=== PATIENT | female | born 1995 | race Native Hawaiian/Other Pacific Islander ===

== ENCOUNTER 2017-11-04 23:39 | Emergency (ER) | payer SELFPAY ==
[2017-11-05 01:32] LABS: Basophils % (Auto) 0.4 % (0.0-1.8); Eosinophils # (Auto) 0.3 K/mm3 (0.0-0.4); Eosinophils % (Auto) 3.2 % (0.0-4.3); Hematocrit 36.7 % (30.3-42.9); Hemoglobin 11.8 gm/dl (10.1-14.3); Lymphocytes # (Auto) 1.8 K/mm3 (1.2-5.4); Lymphocytes % (Auto) 19.7 % (13.4-35.0); Mean Corpuscular HGB Conc 32 % (30-34); Mean Corpuscular Hemoglobin 27 pg (28-32); Mean Corpuscular Volume 83 fl (79-97); Monocytes # (Auto) 0.6 K/mm3 (0.0-0.8); Monocytes % (Auto) 6.8 % (0.0-7.3); Platelet Count 248 K/mm3 (140-440); Red Blood Count 4.44 M/mm3 (3.65-5.03); Red Cell Distribution Width 15.2 % (13.2-15.2)
[2017-11-05 02:09] LABS: Bilirubin,Urine NEG (Negative); Blood,Urine LG (Negative); Mucus,Urine FEW /HPF; Urobilinogen,Urine < 2.0 mg/dL (<2.0)
[2017-11-05 02:13] LABS: Color,Urine Sl. Red (Yellow); RBC,Urine > 182.0 /HPF (0.0-6.0)
--- NOTE | 2017-11-05 10:05 | Emergency Department Report ---
ED Female HPI - General Chief complaint: Vaginal Bleeding Stated complaint: VAGINAL BLEEDING Time Seen by Provider: 11/05/17 09:46 Source: patient Mode of arrival: Ambulatory Limitations: No Limitations - History of Present Illness Initial comments: Patient is a 22-year-old female who is presenting with vaginal bleeding. Patient states she's been bleeding for the past 2 days. Patient states it is a heavy flow with several small clots. There also is some accompanying abdominal crampiness in the suprapubic region. Patient states his discomfort is a 45 out of 10 in severity. Patient had a chemical one month ago. Patient was approximately 5-6 weeks and took methotrexate to terminate the . Patient states she has not had sexual intercourse since that time and also has restarted control. The patient came today for evaluation of this vaginal bleeding. Severity scale (0 -10): 6 Quality: cramping Associated Symptoms: weakness. denies: vaginal discharge, nausea/vomiting, fever/chills, headaches, loss of appetite, dysuria, hematuria, rash, seizure, shortness of breath, syncope - Related Data Previous Rx's Medication Instructions Recorded Last Taken Type HYDROcodone/APAP 5-325 [[place] 1 each PO Q6HR PRN #12 tablet 11/05/17 Unknown Rx 5/325] Ibuprofen [Motrin] 600 mg PO Q8H PRN #20 tablet 11/05/17 Unknown Rx Methylergonovine [Methergine] 0.2 mg PO Q8HR 3 Days tablet 11/05/17 Unknown Rx Allergies Allergy/AdvReac Type Severity Reaction Status Date / Time latex Allergy Swelling Verified 11/05/17 00:26 ED Review of Systems ROS: Stated complaint: VAGINAL BLEEDING Other details as noted in HPI Comment: All other systems reviewed and negative ED Past Medical Hx - Past Medical History Hx Asthma: Yes Additional medical history: PCOS, THYROID DISEASE - Surgical History Additional Surgical History: Adenoidectomy, tonsillectomy, - Social History Smoking Status: Never Smoker Substance Use Type: None - Medications Home Medications: Home Medications Medication Instructions Recorded Confirmed Last Taken Type HYDROcodone/APAP 5-325 [[place] 1 each PO Q6HR PRN #12 tablet 11/05/17 Unknown Rx 5/325] Ibuprofen [Motrin] 600 mg PO Q8H PRN #20 tablet 11/05/17 Unknown Rx Methylergonovine [Methergine] 0.2 mg PO Q8HR 3 Days tablet 11/05/17 Unknown Rx ED Physical Exam - General Limitations: No Limitations General appearance: alert, in no apparent distress - Head Head exam: Present: atraumatic, normocephalic - Eye Eye exam: Present: normal appearance - ENT ENT exam: Present: mucous membranes moist - Neck Neck exam: Present: normal inspection - Respiratory Respiratory exam: Present: normal lung sounds bilaterally. Absent: respiratory distress, wheezes, rales, rhonchi - Cardiovascular Cardiovascular Exam: Present: regular rate, normal rhythm. Absent: systolic murmur, diastolic murmur, rubs, gallop - GI/Abdominal GI/Abdominal exam: Present: soft, tenderness (mild suprapubic), normal bowel sounds. Absent: distended, guarding, rebound, rigid - Extremities Exam Extremities exam: Present: normal inspection - Back Exam Back exam: Present: normal inspection - Neurological Exam Neurological exam: Present: alert, oriented X3 - Psychiatric Psychiatric exam: Present: normal affect, normal mood - Skin Skin exam: Present: warm, dry, intact, normal color. Absent: rash ED Course Vital Signs 11/05/17 11/05/17 00:20 08:17 Temperature 98.6 F 98.5 F Pulse Rate 63 74 Respiratory 16 18 Rate Blood Pressure 108/76 Blood Pressure 118/79 [Right] O2 Sat by Pulse 98 100 Oximetry ED Medical Decision Making - Lab Data Result diagrams: 11/05/17 00:40 Lab Results 11/05/17 11/05/17 11/05/17 Range/Units 00:40 00:40 00:40 WBC 9.3 (4.5-11.0) K/mm3 RBC 4.44 (3.65-5.03) M/mm3 Hgb 11.8 (10.1-14.3) gm/dl Hct 36.7 (30.3-42.9) % MCV 83 (79-97) fl MCH 27 L (28-32) pg MCHC 32 (30-34) % RDW 15.2 (13.2-15.2) % Plt Count 248 (140-440) K/mm3 Lymph % (Auto) 19.7 (13.4-35.0) % Centre % (Auto) 6.8 (0.0-7.3) % Eos % (Auto) 3.2 (0.0-4.3) % Baso % (Auto) 0.4 (0.0-1.8) % Lymph # 1.8 (1.2-5.4) K/mm3 Centre # 0.6 (0.0-0.8) K/mm3 Eos # 0.3 (0.0-0.4) K/mm3 Baso # 0.0 (0.0-0.1) K/mm3 Seg Neutrophils % 69.9 (40.0-70.0) % Seg Neutrophils # 6.5 (1.8-7.7) K/mm3 HCG, Qual Positive (Negative) HCG, Quant 46.95 H (0-4) mIU/mL Urine Color (Yellow) Urine Turbidity (Clear) Urine pH (5.0-7.0) Ur Specific [place] (1.003-1.030) Urine Protein (Negative) mg/dL Urine Glucose (UA) (Negative) mg/dL Urine Ketones (Negative) mg/dL Urine Blood (Negative) Urine Nitrite (Negative) Urine Bilirubin (Negative) Urine Urobilinogen (<2.0) mg/dL Ur Leukocyte Esterase (Negative) Urine WBC (Auto) (0.0-6.0) /HPF Urine RBC (Auto) (0.0-6.0) /HPF U Epithel Cells (Auto) (0-13.0) /HPF Urine Mucus /HPF Blood Type Antibody Screen 11/05/17 11/05/17 Range/Units 00:45 Unknown WBC (4.5-11.0) K/mm3 RBC (3.65-5.03) M/mm3 Hgb (10.1-14.3) gm/dl Hct (30.3-42.9) % MCV (79-97) fl MCH (28-32) pg MCHC (30-34) % RDW (13.2-15.2) % Plt Count (140-440) K/mm3 Lymph % (Auto) (13.4-35.0) % Centre % (Auto) (0.0-7.3) % Eos % (Auto) (0.0-4.3) % Baso % (Auto) (0.0-1.8) % Lymph # (1.2-5.4) K/mm3 Centre # (0.0-0.8) K/mm3 Eos # (0.0-0.4) K/mm3 Baso # (0.0-0.1) K/mm3 Seg Neutrophils % (40.0-70.0) % Seg Neutrophils # (1.8-7.7) K/mm3 HCG, Qual (Negative) HCG, Quant (0-4) mIU/mL Urine Color Sl. red (Yellow) Urine Turbidity Clear (Clear) Urine pH 6.0 (5.0-7.0) Ur Specific [place] 1.023 (1.003-1.030) Urine Protein 30 mg/dl (Negative) mg/dL Urine Glucose (UA) Neg (Negative) mg/dL Urine Ketones Neg (Negative) mg/dL Urine Blood Lg (Negative) Urine Nitrite Neg (Negative) Urine Bilirubin Neg (Negative) Urine Urobilinogen < 2.0 (<2.0) mg/dL Ur Leukocyte Esterase Neg (Negative) Urine WBC (Auto) 22.0 H (0.0-6.0) /HPF Urine RBC (Auto) > 182.0 (0.0-6.0) /HPF U Epithel Cells (Auto) 1.0 (0-13.0) /HPF Urine Mucus Few /HPF Blood Type A POSITIVE Antibody Screen Negative - Radiology Data Radiology results: report reviewed Patient: SUSAN REBOLLEDO MR#: [id number] : 1995 Acct:[id number] Age/Sex: 22 / F ADM Date: 11/04/17 Loc: ED Attending Dr: Ordering Physician: ERVIN LONGO MD Date of Service: 11/05/17 Procedure(s): US OB transvaginal Accession Number(s): [id number] cc: ERVIN LONGO MD ULTRASOUND OB LESS THAN 14 WEEKS FETUS ULTRASOUND OB TRANSVAGINAL HISTORY: Vaginal bleeding during . COMPARISON: None. TECHNIQUE: Transabdominal and transvaginal ultrasound with color doppler interrogation. FINDINGS: Uterus: 7 x 4 x 7 cm. No uterine mass. Normal cervix. Endometrium: There is a cystic structure in the endometrial canal measuring up to 7.3 mm which may represent a gestational sac. No pole, yolk sac or heart tones are identified. This may also represent fluid in the endometrial canal. The endometrium is thickened measuring 2.5 cm. Right ovary: 5.7 x 4.6 x 5.1 cm. There is a complex partially cystic lesion in the right ovary measuring up to 5 cm which resembles a hemorrhagic cyst. Left ovary: 2.5 x 0.9 x 1.9 cm. A 1.4 cm left ovarian cyst is identified. No pelvic fluid or mass is identified. Normal color doppler interrogation. IMPRESSION: No viable intrauterine is confidently identified. There may be a gestational sac versus fluid in the endometrial canal but no pole or heart tones could be demonstrated. The endometrium measures 2.5 cm. It is unclear if this represents a blighted ovum, very early or retained products after spontaneous . Please note that an ectopic is not entirely excluded at this time. Close interval followup is recommended Bilateral ovarian cysts as described. - Medical Decision Making Patient is a 22-year-old female status post chemical in 1 month ago presented with some abdominal cramping and vaginal bleeding. Patient most likely is still having her levels decreased from the chemical and has started bleeding because it. No IUP was seen on the ultrasound that was done today. Patient will need repeat beta Quant in several days to assure that her numbers are as continuing to fall. Critical care attestation.: If time is entered above; I have spent that time in minutes in the direct care of this critically ill patient, excluding procedure time. ED Disposition Clinical Impression: Missed Disposition: DC-01 TO HOME OR SELFCARE Is pt being admited?: No Does the pt Need Aspirin: No Condition: Stable Additional Instructions: Your beta quantitative today was 47. In several days please have another blood test done to ensure that this number is decreasing. 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
--- NOTE | 2017-11-05 10:42 | Ultrasound Report ---
ULTRASOUND OB LESS THAN 14 WEEKS FETUS ULTRASOUND OB TRANSVAGINAL HISTORY: Vaginal bleeding during . COMPARISON: None. TECHNIQUE: Transabdominal and transvaginal ultrasound with color doppler interrogation. FINDINGS: Uterus: 7 x 4 x 7 cm. No uterine mass. Normal cervix. Endometrium: There is a cystic structure in the endometrial canal measuring up to 7.3 mm which may represent a gestational sac. No pole, yolk sac or heart tones are identified. This may also represent fluid in the endometrial canal. The endometrium is thickened measuring 2.5 cm. Right ovary: 5.7 x 4.6 x 5.1 cm. There is a complex partially cystic lesion in the right ovary measuring up to 5 cm which resembles a hemorrhagic cyst. Left ovary: 2.5 x 0.9 x 1.9 cm. A 1.4 cm left ovarian cyst is identified. No pelvic fluid or mass is identified. Normal color doppler interrogation. IMPRESSION: No viable intrauterine is confidently identified. There may be a gestational sac versus fluid in the endometrial canal but no pole or heart tones could be demonstrated. The endometrium measures 2.5 cm. It is unclear if this represents a blighted ovum, very early or retained products after spontaneous . Please note that an ectopic is not entirely excluded at this time. Close interval followup is recommended Bilateral ovarian cysts as described.
[2017-11-05 11:22] VITALS: BP 107/64
== END 2017-11-05 11:24 | disposition home or self-care (01) ==
LOC: ED 23:39
DX: O02.1 Missed abortion (principal); O34.81 Maternal care for other abnormalities of pelvic organs, first trimester; J45.909 Unspecified asthma, uncomplicated; Z91.040 Latex allergy status; Z3A.01 Less than 8 weeks gestation of pregnancy
CPT/HCPCS: 36415; 76801; 76817; 81001; 84702; 84703; 85025; 86850; 86900; 86901